=== PATIENT | male | born 1995 | race Caucasian/White ===

== ENCOUNTER 2019-06-05 10:24 | Emergency (ER) | payer OTHER ==
[2019-06-05 11:24] VITALS: BP 118/65
--- NOTE | 2019-06-05 12:11 | UC ---
Throat Pain/Nasal Vincent HPI - HPI Summary HPI Summary: 2 days of Painful sore on back of throat and cough for past few days. denies fever,neck pain, rash. son also sick w/ [facility] symptoms. swallowing makes it worse. Taking cough syrup and ibuprofen prn. - History of Current Complaint Chief Complaint: UCRespiratory Stated Complaint: ST Time Seen by Provider: 06/05/19 12:04 Hx Obtained From: Patient Pain Intensity: 5 Pain Scale Used: 0-10 Numeric - Allergies/Home Medications Allergies/Adverse Reactions: Allergies Allergy/AdvReac Type Severity Reaction Status Date / Time No Known Allergies Allergy Verified 06/05/19 11:19 Home Medications: Home Medications Dextromethorphan/Benzocaine [Cepacol Sorethroat-Cough Kim] 1 each PO Q2HR #90 lozenge 06/05/19 [Rx] PMH/Surg Hx/FS Hx/Imm Hx - Additional Past Medical History Additional PMH: no chronic illness Previously Healthy: Yes - Surgical History Surgical History: Yes Surgery Procedure, Year, and Place: wisdom teeth - Family History Known Family History: Positive: Non-Contributory - Social History Alcohol Use: None Substance Use Type: None Smoking Status (MU): Never Smoked Tobacco Review of Systems All Other Systems Reviewed And Are Negative: Yes Constitutional: Positive: Fever, Chills, Fatigue Skin: Negative: Rash ENT: Positive: Sore Throat, Sinus Congestion. Negative: Ear Ache Respiratory: Positive: Cough - non productive, intermittent. Negative: Shortness Of Breath Cardiovascular: Negative: Chest Pain Musculoskeletal: Negative: Other: - denies neck pain Neurological/Mental Status: Negative: Headache Physical Exam Triage Information Reviewed: Yes Appearance: Well-Appearing Vital Signs: Initial Vital Signs Temp 98.5 F 06/05/19 11:19 Pulse 102 06/05/19 11:19 Resp 16 06/05/19 11:19 BP 118/65 06/05/19 11:19 Pulse Ox 99 06/05/19 11:19 Eyes: Positive: Conjunctiva Clear ENT: Positive: Pharyngeal erythema, TMs normal - bilat, Uvula midline, Other - tonsillar ulceration/apthous ulcer R tonsil. Negative: Tonsillar swelling, Tonsillar exudate Neck: Positive: Supple, Nontender, No Lymphadenopathy Respiratory Exam: Normal Cardiovascular Exam: Normal Neurological: Positive: Alert Skin: Negative: Rashes Throat Pain/Nasal Course/Dx - Course Course Of Treatment: Viral pharyngitis x 2 days w/ neg. rapid strep today. vitals good and exam did demonstrate pharyngitis. discussed ways to manage and that this was self limiting. - Differential Dx/Diagnosis Differential Diagnosis/HQI/PQRI: Laryngitis, Pharyngitis, URI, Other Provider Diagnosis: Viral pharyngitis Discharge ED - Sign-Out/Discharge Documenting (check all that apply): Patient Departure All imaging exams completed and their final reports reviewed: No Studies - Discharge Plan Condition: Good Disposition: HOME Prescriptions: Dextromethorphan/Benzocaine [Cepacol Sorethroat-Cough Kim] 1 each PO Q2HR #90 lozenge Patient Education Materials: Pharyngitis (ED) Forms: *Work Release Referrals: No Primary Care Phys,NOPCP [Primary Care Provider] - Additional Instructions: If worsening please return. - Billing Disposition and Condition Condition: GOOD Disposition: Home - Attestation Statements Provider Attestation: Chart has been reviewed. I did not see the patient but was available for consult. EK.
== END 2019-06-05 12:21 | disposition home or self-care (01) ==
LOC: UCCORT 10:24
DX: J02.9 Acute pharyngitis, unspecified (principal); R53.83 Other fatigue; R09.81 Nasal congestion; R05 Cough
CPT/HCPCS: 87651; 99202; G0463